=== PATIENT | female | born 1975 | race African-American/Black ===

== ENCOUNTER 2017-06-27 16:46 | Emergency (ER) | payer OTHER ==
[~2017-06-27] VITALS: Ht 157.5 cm; Wt 75.7 kg
[~2017-06-27 16:46] MED LIST: COLACE100 MG ORAL; IBUPROFEN600 MG ORAL; ILOTYCIN3.5 GM TOP; METOPROLOL TART25 MG ORAL; MIRALAX17 G2 PO; NAPROSYN500 M1 PO; NEOMYCIN-POLY-7.5 M1 OP; NKM; NORCO 5-325 TA1 EACH ORAL; POLYTRIM OP SOL10 ML BOTH EYES; TOBRAMYCIN-DEXAM5 M1 OP; ULTRAM50 MG PO; VICODIN 5-5001 EACH PO; VIGAMOX1 DROP BOTH EYES
[2017-06-27 17:02] VITALS: BP 150/71
[2017-06-27] MEDS ORDERED: OCUFLOX5 ML OP (17:28)
[2017-06-27 17:35] VITALS: BP 150/71
--- NOTE | 2017-06-27 21:23 | Emergency Room Report ---
History of Present Illness General Chief Complaint: Eye Problems Source: Patient, Medical Record Present Illness HPI The patient is a 41-year-old female presenting for possible infection. She states that she noticed redness and white discharge from the right eye one week prior and is now experiencing some symptoms of the left eye which began yesterday. She denies any known sick contacts. Pain is a 3/10 burning sensation. She denies any other symptoms including N, V,F, blurred vision, dizziness Allergies: Coded Allergies: No Known Allergies (Unverified , 12/11/12) Patient History Past Medical History: see triage record Pertinent Family History: none Last Menstrual Period: 06/27/17 Reviewed Nursing Documentation: PMH: Agreed, PSxH: Agreed Nursing Documentation-PMH Past Medical History: No History, Except For Hx Hypertension: Yes Review of Systems All Other Systems: negative except mentioned in HPI Physical Exam Vital Signs Date Time Temp Pulse Resp B/P (MAP) Pulse Ox O2 Delivery O2 Flow Rate FiO2 06/27/17 16:57 98.4 74 14 150/71 99 Room Air Sp02 EP Interpretation: reviewed, normal General Appearance: no apparent distress, alert, GCS 15, non-toxic Head: normocephalic, atraumatic Eyes: right eye lid inflammation, right eye Scleral Injection, right eye other - white DC, bilateral eye PERRL, bilateral eye EOMI ENT: hearing grossly normal, normal pharynx, no angioedema, normal voice Neck: full range of motion, supple/symm/no masses Musculoskeletal: back normal, gait/station normal, normal range of motion, non- tender Neurologic: alert, oriented x3, responsive, motor strength/tone normal, sensory intact, speech normal Psychiatric: judgement/insight normal, memory normal, mood/affect normal, no suicidal/homicidal ideation Skin: normal color, no rash, warm/dry, well hydrated Lymphatic: no adenopathy Medical Decision Making PA Attestation Dr. Moreira is my supervising physician. Patient management was discussed with my supervising physician Diagnostic Impression: Primary Impression: Conjunctivitis Qualified Codes: H10.33 - Unspecified acute conjunctivitis, bilateral ER Course The patient is a 41-year-old female presenting for possible infection. Differential diagnoses considered but not limited to allergic conjunctivitis, bacterial conjunctivitis, viral conjunctivitis, blepharitis, hordeolum Physical exam: Vitals within normal limits. No apparent distress HEENT: There is Right eye injection with white discharge. EOMI. PERRL Otherwise exam is unremarkable The patient will be discharged home with a prescription for ofloxacin and will follow up with PMD. ER precautions are given Last Vital Signs Date Time Temp Pulse Resp B/P (MAP) Pulse Ox O2 Delivery O2 Flow Rate FiO2 06/27/17 17:35 98.4 77 14 150/71 99 Room Air Status: improved Disposition: HOME, SELF-CARE Condition: Improved Scripts Ofloxacin (OCUFLOX) 5 Ml Drops 1 DROP OP Q4HR for 7 Days, ML Prov: BYRON GRIMES 06/27/17 Referrals: [facility],REFERRING (PCP) Patient Instructions: Bacterial Conjunctivitis Additional Instructions: I discussed my findings with the patient. All questions and concerns have been answered. Treatment and medication compliance have been addressed. I advised the patient that they need to follow up with PMD in 3-5 days. Return to ED if symptoms worsen, new symptoms arise, or if needed for any reason. Patient verbalized understanding of discharge instructions. BYRON GRIMES Jun 27, 2017 21:23
== END 2017-06-27 20:02 | disposition home or self-care (01) ==
LOC: EMR 17:25
DX: H10.9 Unspecified conjunctivitis (principal); I10 Essential (primary) hypertension
CPT/HCPCS: 99283

== ENCOUNTER 2017-09-12 11:11 | Emergency (ER) | payer OTHER ==
[~2017-09-12] VITALS: Ht 157.5 cm; Wt 82.6 kg
[~2017-09-12 11:11] MED LIST changes: +OCUFLOX5 ML OP
[2017-09-12 11:20] VITALS: BP 150/99
[2017-09-12] MEDS ORDERED: IBUPROFEN600 MG ORAL (11:40)
[2017-09-12] MEDS ORDERED: CYCLOBENZAPRINE10 MG ORAL (11:40)
[2017-09-12 11:54] VITALS: BP 150/99
--- NOTE | 2017-09-12 14:08 | Emergency Room Report ---
History of Present Illness General Chief Complaint: Pain Source: Patient, Medical Record Present Illness HPI 41-year-old female presents ED complaining of right wrist pain, back pain and left foot pain. Started approximately 3 days ago. Denies trauma. Pain is throbbing, 5 at 10, nonradiating. No other aggravating relieving factors. Denies any other associated symptoms Allergies: Coded Allergies: No Known Allergies (Unverified , 12/11/12) Patient History Past Medical History: HTN Past Surgical History: none Pertinent Family History: none Social History: Denies: smoking, alcohol use, drug use Last Menstrual Period: 09/10/17 Now: No Immunizations: UTD Reviewed Nursing Documentation: PMH: Agreed, PSxH: Agreed Nursing Documentation-PMH Past Medical History: No History, Except For Hx Hypertension: Yes Review of Systems All Other Systems: negative except mentioned in HPI Physical Exam Vital Signs Date Time Temp Pulse Resp B/P (MAP) Pulse Ox O2 Delivery O2 Flow Rate FiO2 09/12/17 11:14 98.1 88 18 150/99 98 Room Air Sp02 EP Interpretation: reviewed, normal General Appearance: no apparent distress, alert, GCS 15, non-toxic Head: normocephalic Eyes: bilateral eye normal inspection, bilateral eye PERRL ENT: normal ENT inspection Neck: normal inspection Respiratory: normal inspection Cardiovascular #1: normal inspection Gastrointestinal: normal inspection Rectal: deferred Genitourinary: no CVA tenderness, no vertebral tenderness Musculoskeletal: other - bunion L foot, tender - R wrist, lower back Neurologic: alert, oriented x3, responsive, motor strength/tone normal, sensory intact, speech normal Psychiatric: normal inspection Skin: normal inspection Lymphatic: normal inspection Procedures Splinting Splinting : Consent: Verbal Pre-Made Type: velcro Splint: wrist Pre-Proc Neuro Vasc Exam: normal Post-Proc Neuro Vasc Exam: normal Patient Tolerated: Well Complications: None Medical Decision Making Diagnostic Impression: Primary Impression: Wrist sprain Qualified Codes: S63.501A - Unspecified sprain of right wrist, initial encounter Additional Impressions: Back strain Qualified Codes: S39.012A - Strain of muscle, fascia and tendon of lower back , initial encounter Bunion of left foot ER Course Hospital Course 41-year-old female presents ED complaining of right wrist pain, lower back pain , left foot pain, no trauma Differential diagnoses include: Fracture, dislocation, sprain, contusion, bursitis Clinical course Patient placed on stretcher. After initial history, physical exam reveals an middle-aged female in no acute distress. There is some tenderness to the right wrist. Full range of motion. No deformity or bruising. Likely sprain given no trauma. There is no vertebral body tenderness, some paraspinal lumbar tenderness. There is evidence of a bunion to the left lateral foot. Recommend followup with podiatry Placed in right wrist splint Diagnosis - wrist sprain, back strain, bunion of L foot stable and discharged to home with prescription for Motrin, flexeril. Followup with PMD. Return to ED if symptoms recur or worsen Last Vital Signs Date Time Temp Pulse Resp B/P (MAP) Pulse Ox O2 Delivery O2 Flow Rate FiO2 09/12/17 11:54 98.1 72 18 150/99 98 Room Air Status: improved Disposition: HOME, SELF-CARE Condition: Stable Scripts Cyclobenzaprine Hcl* (FLEXERIL*) 10 Mg Tablet 10 MG ORAL TID Y for Muscle Spasm, #20 TAB Prov: DANI CALVILLO M.D. 09/12/17 Ibuprofen* (MOTRIN*) 600 Mg Tablet 600 MG ORAL Q8H Y for For Pain, #30 TAB 0 Refills Prov: DANI CALVILLO M.D. 09/12/17 Referrals: [facility],REFERRING (PCP) Departure Forms: Return to Work Return to Work Date: Sep 14, 2017 Work Restrictions: No Heavy Lifting Patient Instructions: Bunion (Hallux Valgus) DANI CALVILLO M.D. Sep 12, 2017 14:08
== END 2017-09-12 11:54 | disposition home or self-care (01) ==
LOC: EMR 11:40
DX: S63.501A Unspecified sprain of right wrist, initial encounter (principal); S39.012A Strain of muscle, fascia and tendon of lower back, initial encounter; X58.XXXA Exposure to other specified factors, initial encounter; Y92.9 Unspecified place or not applicable; M21.612 Bunion of left foot; I10 Essential (primary) hypertension
CPT/HCPCS: 99283

== ENCOUNTER 2017-09-25 12:13 | Emergency (ER) | payer OTHER ==
[~2017-09-25] VITALS: Ht 165.1 cm; Wt 81.6 kg
[~2017-09-25 12:13] MED LIST changes: +CYCLOBENZAPRINE10 MG ORAL
--- NOTE | 2017-09-25 12:33 | Emergency Room Report ---
History of Present Illness General Chief Complaint: General Complaint Source: Patient Present Illness HPI 41-year-old female presents to the emergency department for evaluation to return to work full daily. Patient was seen here in the department on the and was diagnosed with wrist sprain of the right wrist. Patient reports no complications at this time she denies pain she denies swelling or bruising. Patient denies pain with ADLs. Patient reports that she did not followup with her PMD. She was told that her symptoms may be related to carpal tunnel syndrome and she has kept the wrist splint in case she needs to put them later. Allergies: Coded Allergies: No Known Allergies (Unverified , 12/11/12) Patient History Past Medical History: see triage record Past Surgical History: none Pertinent Family History: none Now: No Reviewed Nursing Documentation: PMH: Agreed, PSxH: Agreed Nursing Documentation-PMH Hx Hypertension: Yes Review of Systems All Other Systems: negative except mentioned in HPI Physical Exam Vital Signs Date Time Temp Pulse Resp B/P (MAP) Pulse Ox O2 Delivery O2 Flow Rate FiO2 09/25/17 12:19 98.1 76 16 130/80 98 Room Air Sp02 EP Interpretation: reviewed, normal General Appearance: no apparent distress, alert, GCS 15, non-toxic Head: normocephalic ENT: hearing grossly normal, normal voice Neck: full range of motion Respiratory: lungs clear, normal breath sounds, speaking full sentences Cardiovascular #1: regular rate, rhythm, normal capillary refill Cardiovascular #2: 2+ radial (R) Rectal: deferred Musculoskeletal: back normal, gait/station normal, normal range of motion, non- tender Neurologic: alert, oriented x3, responsive, motor strength/tone normal, sensory intact, normal gait, speech normal Skin: normal color, no rash, warm/dry, well hydrated Medical Decision Making PA Attestation Dr. Lyon is my supervising Physician whom patient management has been discussed with. Diagnostic Impression: Primary Impression: Return to work evaluation ER Course 41-year-old female presents to the emergency department for evaluation to return to work full daily. Patient was seen here in the department on the and was diagnosed with wrist sprain of the right wrist. Patient reports no complications at this time she denies pain she denies swelling or bruising. Patient denies pain with ADLs. Patient reports that she did not followup with her PMD. She was told that her symptoms may be related to carpal tunnel syndrome and she has kept the wrist splint in case she needs to put them later. Ddx considered but are not limited to full recovery, temporary disability, prolonged symptoms, non-compliance with follow up , re-injury just to name a few. Vital signs: are WNL, pt. is afebrile H&PE are most consistent with full recovery of right wrist sprain. ORDERS: none required at this time, the diagnosis is clinical ED INTERVENTIONS: None required at this time. -Pt. is given note to return to work: full duty. DISCHARGE: At this time pt. is stable for d/c to home. Will provide printed patient care instructions, and any necessary prescriptions. Care plan and follow up instructions have been discussed with the patient prior to discharge. Last Vital Signs Date Time Temp Pulse Resp B/P (MAP) Pulse Ox O2 Delivery O2 Flow Rate FiO2 09/25/17 12:19 98.1 76 16 130/80 98 Room Air Disposition: HOME, SELF-CARE Condition: Stable Departure Forms: Return to Work Return to Work Date: Sep 26, 2017 Work Restrictions: None Other Restrictions: Return to Full Duty 09/26/17. Return to Full Activity: Sep 26, 2017 Patient Instructions: Form - Return To Work Additional Instructions: Follow up with a Primary Care Provider in 3-5 days, even if your symptoms have resolved. --Please review list of primary care clinics, if you do not already have a primary care provider - Please note that this Emergency Department Report was dictated using [employer] fix[employer] technology software, occasionally this can lead to erroneous entry secondary to interpretation by the dictation equipment. Valentina Thorpe Sep 25, 2017 12:33
[2017-09-25 12:38] VITALS: BP 130/80
== END 2017-09-25 12:38 | disposition home or self-care (01) ==
LOC: EMR 12:28
DX: Z02.89 Encounter for other administrative examinations (principal); I10 Essential (primary) hypertension
CPT/HCPCS: 99281; 99282

== ENCOUNTER 2018-01-11 20:52 | Emergency (ER) | payer OTHER ==
[~2018-01-11] VITALS: Ht 157.5 cm; Wt 77.1 kg
[2018-01-11 21:20] VITALS: BP 168/98
[2018-01-11] MEDS ORDERED: BENADRYL25 MG ORAL (21:30)
[2018-01-11] MEDS ORDERED: PREDNISONE20 MG ORAL (21:30)
--- NOTE | 2018-01-11 21:31 | Emergency Room Report ---
History of Present Illness General Chief Complaint: Skin Rash/Abscess Source: Patient Present Illness HPI This is a 42-year-old female with no significant past medical history. She presents with chief complaint of itching and rash on her arm and torso area. She was at her friend's house yesterday and had a headache. She took some Tylenol. She was also cold so she put on her friend's blanket over her body. When she got home she started noticing a rash and itchiness. Has not take anything for it. No respiratory complaint. No pain. No nausea no vomiting. Allergies: Coded Allergies: No Known Allergies (Unverified , 12/11/12) Patient History Past Medical History: see triage record, old chart reviewed Past Surgical History: other Pertinent Family History: none Social History: Denies: smoking Last Menstrual Period: 12/25/17 Now: No : 6 Para: 3 Immunizations: other Reviewed Nursing Documentation: PMH: Agreed; PSxH: Agreed Nursing Documentation-PMH Hx Hypertension: Yes Review of Systems Eye: Denies: eye pain, blurred vision ENT: Denies: ear pain, nose congestion, throat swelling Respiratory: Denies: cough, shortness of breath Cardiovascular: Denies: chest pain, palpitations Gastrointestinal: Denies: abdominal pain, diarrhea, nausea, vomiting Musculoskeletal: Denies: back pain, joint pain Skin: Denies: rash Neurological: Denies: headache, numbness Endocrine: Denies: increased thirst, increased urine Hematologic/Lymphatic: Denies: easy bruising Allergic: Reports: urticaria All Other Systems: negative except mentioned in HPI Physical Exam Vital Signs Date Time Temp Pulse Resp B/P (MAP) Pulse Ox O2 Delivery O2 Flow Rate FiO2 01/11/18 21:01 98.6 89 14 168/98 99 Room Air 98.6 vitals normal except for high blood pressure Sp02 EP Interpretation: reviewed, normal General Appearance: well appearing, no apparent distress, alert Head: normocephalic, atraumatic Eyes: bilateral eye PERRL, bilateral eye EOMI ENT: hearing grossly normal, normal pharynx Neck: full range of motion, supple, no meningismus Respiratory: chest non-tender, lungs clear, normal breath sounds Cardiovascular #1: regular rate, rhythm, no murmur Gastrointestinal: normal bowel sounds, non tender, no mass, no organomegaly, no bruit, non-distended Musculoskeletal: back normal, gait/station normal, normal range of motion Neurologic: alert, oriented x3 Psychiatric: mood/affect normal Skin: warm/dry, other - uurticaria to shoulder and upper arm. Medical Decision Making Diagnostic Impression: Primary Impression: Allergic reaction Qualified Codes: T78.40XA - Allergy, unspecified, initial encounter Additional Impression: Hypertension Qualified Codes: I10 - Essential (primary) hypertension ER Course Patient with allergic reaction probably to some chemical on the blanket. No evidence of anaphylaxis or respiratory issue. We'll discharge home. Last Vital Signs Date Time Temp Pulse Resp B/P (MAP) Pulse Ox O2 Delivery O2 Flow Rate FiO2 01/11/18 21:01 98.6 89 14 168/98 99 Room Air 98.6 Status: improved Disposition: HOME, SELF-CARE Condition: Stable Scripts Prednisone* (PREDNISONE*) 20 Mg Tablet 60 MG ORAL DAILY, #12 TAB Prov: TANISHA ORNELAS M.D. 01/11/18 Diphenhydramine Hcl* (BENADRYL*) 25 Mg Capsule 50 MG ORAL Q6H PRN for Itching, #30 CAP Prov: TANISHA ORNELAS M.D. 01/11/18 Additional Instructions: Follow-up your doctor in 7 days. Return of worse. TANISHA ORNELAS M.D. Jan 11, 2018 21:31
[2018-01-11] MEDS ORDERED: TENORMIN50 MG ORAL (21:34)
[2018-01-11 21:50] VITALS: BP 154/92
== END 2018-01-11 21:50 | disposition home or self-care (01) ==
LOC: EMR 21:10
DX: T78.40XA Allergy, unspecified, initial encounter (principal); X58.XXXA Exposure to other specified factors, initial encounter; I10 Essential (primary) hypertension; L29.9 Pruritus, unspecified
CPT/HCPCS: 99284; J7512

== ENCOUNTER 2018-07-26 23:46 | Emergency (ER) | payer OTHER ==
[~2018-07-26] VITALS: Ht 157.5 cm; Wt 72.6 kg
[~2018-07-26 23:46] MED LIST changes: +BENADRYL25 MG ORAL; +PREDNISONE20 MG ORAL; +TENORMIN50 MG ORAL
[2018-07-27 00:08] VITALS: BP 185/117
[2018-07-27] MEDS ORDERED: Norco 5mg/325mg tab ORAL ONE (00:15)
--- NOTE | 2018-07-27 00:28 | Emergency Room Report ---
History of Present Illness General Chief Complaint: Multiple Trauma/Fall Source: Patient Present Illness HPI This is a 42-year-old female who is right-hand dominant. She has a history of high blood pressure but not taking medication. She presents with chief complaint of a fall with multiple injury. She slipped in the bathtub 2 days ago. She fell and hit her elbow on the edge of the tub. She also twisted herself or hurt her right groin and hip area. Hurts to walk. Her left elbow is tender and swollen. No head injury. Pain is 8 out of 10. Denies any nausea vomiting. Denies any other complaint. Allergies: Coded Allergies: No Known Allergies (Unverified , 12/11/12) Patient History Past Medical History: see triage record, old chart reviewed, HTN Past Surgical History: other Pertinent Family History: none Social History: Denies: smoking Last Menstrual Period: 06/30/2018 Now: No : 4 Para: 2 Immunizations: other Reviewed Nursing Documentation: PMH: Agreed; PSxH: Agreed Nursing Documentation-PMH Past Medical History: No History, Except For Hx Hypertension: Yes Review of Systems Eye: Denies: eye pain, blurred vision ENT: Denies: ear pain, nose congestion, throat swelling Respiratory: Denies: cough, shortness of breath Cardiovascular: Denies: chest pain, palpitations Gastrointestinal: Denies: abdominal pain, diarrhea, nausea, vomiting Musculoskeletal: Reports: joint pain, muscle pain; Denies: back pain Skin: Denies: rash Neurological: Denies: headache, numbness Endocrine: Denies: increased thirst, increased urine Hematologic/Lymphatic: Denies: easy bruising All Other Systems: negative except mentioned in HPI Physical Exam Vital Signs Date Time Temp Pulse Resp B/P (MAP) Pulse Ox O2 Delivery O2 Flow Rate FiO2 07/26/18 23:49 97.9 88 16 204/117 97 Room Air vitals with high blood pressure. Repeat is 166/110 Sp02 EP Interpretation: reviewed, normal General Appearance: well appearing, no apparent distress, alert Head: normocephalic, atraumatic Eyes: bilateral eye PERRL, bilateral eye EOMI ENT: hearing grossly normal, normal pharynx Neck: full range of motion, supple, no meningismus Respiratory: chest non-tender, lungs clear, normal breath sounds Cardiovascular #1: regular rate, rhythm, no murmur Gastrointestinal: normal bowel sounds, non tender, no mass, no organomegaly, no bruit, non-distended Musculoskeletal: back normal, gait/station normal, normal range of motion, other - Left arm: There is ecchymosis to the distal part of the humerus. Tender to palpation of the elbow. Full range of motion however. Sensation normal. Pulses normal. Neurologic: alert, oriented x3 Psychiatric: mood/affect normal Skin: warm/dry Medical Decision Making Diagnostic Impression: Primary Impression: Contusion of left upper arm, initial encounter Additional Impressions: Strain of muscle of right groin region Hypertension Qualified Codes: I10 - Essential (primary) hypertension ER Course This patient presents with soft tissue injury from fall. No fracture dislocation. Patient given medication for her blood pressure here. We'll discharge home with prescription for medication. Other X-Ray Diagnostic Results Other X-Ray Diagnostic Results #1: X-Ray ordered: right hip x-rays # of Views/Limited Vs Complete: 3 View Indication: Pain EP Interpretation: Yes Interpretation: no dislocation, no soft tissue swelling, no fractures Impression: No acute disease Electronically Signed by: Italo Kapoor MD Other X-Ray Diagnostic Results #2: X-Ray ordered: pelvic xray # of Views/Limited Vs Complete: 1 View Indication: Pain EP Interpretation: Yes Interpretation: no dislocation, no soft tissue swelling, no fractures Impression: No acute disease Electronically Signed by: Italo Kapoor MD Other X-Ray Diagnostic Results #3: X-Ray ordered: Left elbow xrays # of Views/Limited Vs Complete: 3 View Indication: Pain EP Interpretation: Yes Interpretation: no dislocation, no soft tissue swelling, no fractures Impression: No acute disease Electronically Signed by: Italo Kapoor MD Last Vital Signs Date Time Temp Pulse Resp B/P (MAP) Pulse Ox O2 Delivery O2 Flow Rate FiO2 07/27/18 00:08 97.8 88 16 185/117 97 Room Air Status: improved Disposition: HOME, SELF-CARE Condition: Stable Scripts Amlodipine Besylate (Norvasc) 10 Mg Tablet 10 MG ORAL DAILY, #90 TAB Prov: Italo Kapoor MD 07/27/18 Ibuprofen* (MOTRIN*) 600 Mg Tablet 600 MG ORAL THREE TIMES A DAY, #30 TAB 0 Refills Prov: Italo Kapoor MD 07/27/18 Additional Instructions: Take your blood pressure medication. Follow-up your doctor in a week for recheck on your blood pressure. Ice pack to the area. Return if worse. Italo Kapoor MD Jul 27, 2018 00:28
[2018-07-27] MEDS ORDERED: IBUPROFEN600 MG ORAL (00:49)
[2018-07-27] MEDS ORDERED: NORVASC10 MG ORAL (00:49)
[2018-07-27 01:31] VITALS: BP 150/90
--- NOTE | 2018-07-27 08:38 | Diagnostic Imaging Report ---
Indication: Pain in right pelvis and hip after falling in shower Technique: One view of the pelvis Comparison: 06/13/2009 Findings: Body habitus limits evaluation. Ossific density projecting cephalad to the greater trochanter was not evident previously. Most likely represents a focus of dystrophic calcification there is no evidence of bone loss from the adjacent greater trochanter. No gross acute fractures. No dislocations. The joint spaces are preserved. Impression: Somewhat limited; no gross acute bony trauma
--- NOTE | 2018-07-27 08:41 | Diagnostic Imaging Report ---
Indication: Trauma, right hip pain, fell in bathtub Technique: 2 views of the right hip Comparison: 06/13/2009 pelvis radiograph Findings: Body habitus limits evaluation. Small cluster of ossific densities are seen adjacent to the greater trochanter. Most likely traction spurs or foci of dystrophic calcification, not evident previously. Similar smaller such areas are seen adjacent to the inferior aspect of the greater trochanter There is increasing osteophytic buttressing of the acetabulum. No acute fractures. No dislocations. Impression: No acute bony trauma
--- NOTE | 2018-07-27 08:42 | Diagnostic Imaging Report ---
Indications: TRAUMA, Pain in left elbow after falling in shower Technique: Three or 4 views of the left elbow Comparison: None Findings: No acute fractures. No dislocations. The joint spaces are preserved Impression: Negative
== END 2018-07-27 00:55 | disposition home or self-care (01) ==
LOC: EMR 23:59
DX: S40.022A Contusion of left upper arm, initial encounter (principal); S39.011A Strain of muscle, fascia and tendon of abdomen, initial encounter; W19.XXXA Unspecified fall, initial encounter; Y92.9 Unspecified place or not applicable; I10 Essential (primary) hypertension
CPT/HCPCS: 72170; 73502; 99284

== ENCOUNTER 2019-05-10 18:17 | Emergency (ER) | payer OTHER ==
[~2019-05-10] VITALS: Ht 157.5 cm; Wt 81.6 kg
[~2019-05-10 18:17] MED LIST changes: +NORVASC10 MG ORAL
[2019-05-10 18:28] VITALS: BP 173/80
--- NOTE | 2019-05-10 18:28 | NUR ---
ED Nurse Note: Patient walked in from home due to left eye irritation x 3-4 days. Noted with left eye redness and verbalized having pain on the same site. Afebrile. Visual acuity shows left eye is 20/200 and right eye is 20/30. Alert and oriented, verbally responsive.
[2019-05-10] MEDS ORDERED: ATENOLOL50 MG ORAL (18:32)
[2019-05-10] MEDS ORDERED: Tetracaine 0.5% Opth 4ml Soln LEFT EYE ONE (18:45)
[2019-05-10] MEDS ORDERED: Fluorescein Strips LEFT EYE ONE (18:45)
[2019-05-10] MEDS ORDERED: OCUFLOX5 ML OP (19:25)
[2019-05-10] MEDS ORDERED: TYLENOL EXTRA500 MG ORAL (19:25)
--- NOTE | 2019-05-10 19:25 | Emergency Room Report ---
History of Present Illness General Chief Complaint: Eye Problems Source: Patient Present Illness HPI 43-year-old female presents to the emergency department complaining of 10 out of 10 severity left eye pain x3 days. Patient reports sharp foreign body sensation and she states it feels as though there are tiny rocks inside of her eye. Patient reports increased lacrimation, erythema, blurry vision and scratching sensation when she closes her eyes. Patient is also reporting photophobia. Eyes trauma or fall she reports she had some discharge in the eye and she was scratching it out with her nail and believes she may have scratched her eye with her nails. Patient denies use of false lashes. She reports some swelling to the upper and lower lid as well she states she had discharge again this morning upon awakening. She states she is up-to-date with her tetanus. She denies contact lens use. Denies: Loss of vision, Floaters, Flashing lights or decrease in her visual field. Pt. reports itching/scratching sensation. Allergies: Coded Allergies: No Known Allergies (Unverified , 12/11/12) Patient History Past Medical History: see triage record Past Surgical History: none Pertinent Family History: none Last Menstrual Period: 04/2019 Now: No Immunizations: UTD Reviewed Nursing Documentation: PMH: Agreed; PSxH: Agreed Nursing Documentation-PMH Past Medical History: No History, Except For Hx Hypertension: Yes Review of Systems All Other Systems: negative except mentioned in HPI Physical Exam Vital Signs Date Time Temp Pulse Resp B/P (MAP) Pulse Ox O2 Delivery O2 Flow Rate FiO2 05/10/19 18:27 99.1 71 20 173/80 (111) 99 Room Air Sp02 EP Interpretation: reviewed, normal General Appearance: no apparent distress, alert, GCS 15, non-toxic Head: normocephalic, atraumatic Eyes: left eye lid inflammation, left eye photophobia, left eye visual acuity - 20/200 in the left ( affected eye), in the right eye 20/30 ( unaffected eye) ., left eye other - Increase fluorescein uptake in a in the center of the left eye just over the pupil. Negative Diego sign. Tonopressure measurements of 10, 12, 9; bilateral eye normal inspection, bilateral eye PERRL ENT: hearing grossly normal, normal voice Neck: full range of motion Respiratory: lungs clear, normal breath sounds, speaking full sentences Cardiovascular #1: regular rate, rhythm Musculoskeletal: gait/station normal, normal range of motion, non-tender Neurologic: alert, oriented x3, responsive, motor strength/tone normal, sensory intact, normal gait, speech normal, grossly normal Psychiatric: judgement/insight normal Medical Decision Making PA Attestation Dr. Encarnacion is my supervising Physician whom patient management has been discussed with. Diagnostic Impression: Primary Impression: Corneal abrasion, left Qualified Codes: S05.02XA - Injury of conjunctiva and corneal abrasion without foreign body, left eye, initial encounter ER Course 43-year-old female presents to the emergency department complaining of 10 out of 10 severity left eye pain x3 days. Patient reports sharp foreign body sensation and she states it feels as though there are tiny rocks inside of her eye. Patient reports increased lacrimation, erythema, blurry vision and scratching sensation when she closes her eyes. Patient is also reporting photophobia. Eyes trauma or fall she reports she had some discharge in the eye and she was scratching it out with her nail and believes she may have scratched her eye with her nails. Patient denies use of false lashes. She reports some swelling to the upper and lower lid as well she states she had discharge again this morning upon awakening. She states she is up-to-date with her tetanus. She denies contact lens use. Denies: Loss of vision, Floaters, Flashing lights or decrease in her visual field. Pt. reports itching/scratching sensation. -Ddx considered but are not limited to: corneal abrasion, acute glaucoma, globe rupture, FB, Corneal Ulcer, conjunctivitis. Iridis Vital signs: are WNL, pt. is afebrile H&PE are most consistent with: corneal abrasion will check pressures and do eye stain exam. ORDERS: -Tetracaine and Fluorescein Stain of the Left eye: -Increase fluorescein uptake in a in the center of the left eye just over the pupil. Negative Diego sign. Pt. had positive relief of all pain and scratching/ fb sensation symptoms after administration of tetracaine drops. there was negative evidence of Fb, deep ulcer, or rupture. -Eder pressure measurements were: 10,12, and 9. ED INTERVENTIONS: none at this time. D/w pt. importance of follow up with ophthalmology within 48 hours DISCHARGE: At this time pt. is stable for d/c to home with close outpatient ophthalmology follow up within 48 hours. Will provide printed patient care instructions, and any necessary prescriptions. Care plan and follow up instructions have been discussed with the patient prior to discharge. . Last Vital Signs Date Time Temp Pulse Resp B/P (MAP) Pulse Ox O2 Delivery O2 Flow Rate FiO2 05/10/19 18:28 99.1 20 173/80 99 Room Air 05/10/19 18:27 71 Disposition: HOME, SELF-CARE Condition: Stable Referrals: NOT CHOSEN IPA/MD,REFERRING (PCP) [facility] Patient Instructions: Corneal Abrasion, [id number] Additional Instructions: Take medications as directed. Follow up with a Basket Operator WITHIN 48 HOURS, even if your symptoms have resolved. --Please review list of primary care clinics, if you do not already have a primary care provider Return sooner to ED if new symptoms occur, or current symptoms become worse. - Please note that this Emergency Department Report was dictated using [email or web address] technology software, occasionally this can lead to erroneous entry secondary to interpretation by the dictation equipment. Valentina Thorpe May 10, 2019 19:25
[2019-05-10 19:45] VITALS: BP 145/75
--- NOTE | 2019-05-10 19:45 | NUR ---
ED Nurse Note: pt cleared to be d/c per ER provider, pt discharge and aftercare instruction provided w/ prescription, pt education done via discussion and handout, pt advised to follow up with opthamologist or return to ed if changes in condition, vss, ambulatory w/ steady gait, left w/ all belongings, id band removed.
== END 2019-05-10 19:47 | disposition home or self-care (01) ==
LOC: EMR 18:30
DX: S05.02XA Injury of conjunctiva and corneal abrasion without foreign body, left eye, initial encounter (principal); I10 Essential (primary) hypertension; X58.XXXA Exposure to other specified factors, initial encounter; Y92.9 Unspecified place or not applicable
CPT/HCPCS: 99282